=== PATIENT | female | born 1950 | race Caucasian/White ===

== ENCOUNTER 2017-02-24 12:32 | Inpatient (IN) | payer MEDICARE ==
[~2017-02-24] VITALS: Ht 172.7 cm; Wt 54.5 kg
[~2017-02-24 12:32] MED LIST: AMLO-39 PO; CAPE500T15 PO; CLOP75TA28 PO; ENAL2.5T PO; LIP40 PO; METF500T4 PO; ONDA8TAB7 PO; OXYC15TA79 PO; SLEEP MED PO; TEMO140C5 PO
[2017-02-24 12:38] VITALS: BP 102/68; PULSE 107; RESP 12; O2SAT 98
--- NOTE | 2017-02-24 12:59 | ED.REPORT ---
HPI-General Illness Date of Service Feb 24, 2017 ED Provider: Jacque Antonio Patient is a 66 year old female with a hx of neuroendocrine cancer, diverticulitis, and CVA on Plavix who presents to the ED complaining of rectal bleeding onset this morning. She describes it as "bright red dripping but not pouring." Associated symptoms include weakness, diaphoresis, vomiting (x4-5), diarrhea, and abdominal cramping onset yesterday. She denies hematemesis, dizziness, or any other symptoms. She is not currently on her chemo medications. Pt had a liver biopsy last week. Nursing Notes Stated Complaint: FLU SYMPTOMS,VOMITING,RECTAL BLEEDING,WEAK Chief Complaint: Female Abdominal Pain Nursing Notes Reviewed: Yes Allergies: Coded Allergies: clavulanic acid (Verified Adverse Reaction, Mild, Diarrhea, nausea, 08/13/15 ) paroxetine (Verified Adverse Reaction, Mild, Sweating, 08/13/15) Scheduled Amlodipine (Norvasc) 5 Mg Tablet 10 MG PO DAILY Atorvastatin (Lipitor) 40 Mg Tablet 40 MG PO DAILY Capecitabine (Capecitabine) 500 Mg Tablet 1,000 MG PO BID X14 DAYS per 28 day cycle Clopidogrel (Clopidogrel) 75 Mg Tablet 75 MG PO DAILY Enalapril Maleate (Enalapril Maleate) 2.5 Mg Tablet 2.5 MG PO DAILY Metformin (Metformin) 500 Mg Tablet 500 MG PO DAILY Temozolomide (Temozolomide) 140 Mg Capsule 140 MG PO BID takes DAYS 10-14 Scheduled PRN ([OTC Sleep med]) Unknown Dose PO HS PRN PRN Insomnia Ondansetron ODT (Zofran ODT) 8 Mg Tab.rapdis 8 MG PO BID PRN PRN For Nausea oxyCODONE (oxyCODONE) 15 Mg Tablet 15-30 MG PO Q8HRS PRN PRN For Pain General Time Seen by MD: 12:59 Chief Complaint Other (Rectal bleeding ) Hx Obtained From: Patient Arrived By: Walk-in Sudden in Onset?: Yes Onset Occurred: 5 - 8 hours ago Symptom Duration: Since onset Location: : Abdomen Quality: Cramping Severity: Current: Moderate Severity: Maximum: Moderate Recent Healthcare: Recent doctor visit Similar Sx Previous: No Past Medical History Past Medical History 1. Hypertension. 2. Diverticulitis. 3. History of alcohol abuse (according to the sister). 4. Neuroendocrine Cancer 5. CVA 6. DM 7. Anxiety 8. hyperlipidemia Past Surgical History Ankle surgery Left leg stent due to stenosis Liver biopsy Reports: Tonsillectomy Smoking History Current Every Day Smoker Social History Lives with friends Drug Use: Denies drug use Ambulatory Status Independent Review of Systems +rectal bleeding Full Review of Systems Constitutional: Reports: Weakness - generalized GI: Reports: Abdominal pain, Diarrhea, Vomiting, Denies: Hematemesis Skin: Reports Diaphoresis Neurologic: Denies: Dizziness Complete sys rev & neg: except as marked. Physical Exam Vital Signs Vital Signs Date Time Temp Pulse Resp B/P Pulse Ox O2 Delivery O2 Flow Rate FiO2 02/24/17 14:08 73 16 108/58 99 Room Air 02/24/17 12:38 36.7 107 12 102/68 98 Room Air Initial VS: Reviewed, Vital signs abnormal Head / Eyes: Atraumatic, Normocephalic Neck: Full range of motion Skin: Warm, Dry Neurologic: Alert, Oriented, Nonfocal General/Constitutional: Awake, Alert, No acute distress Respiratory / Chest: Atraumatic, Breath sounds NL, Breath sounds = bilat, No respiratory distress, No wheezing Cardiovascular: Heart rate NL, Regular rhythm Heart Sounds / Murmur: Positive: Diastolic murmur present. (III/) Abdomen: Atraumatic, Soft, Non-tender Hyperactive bowel tones Lower Extremity / Pelvis / MS: No edema Interpretation & Diagnostics Lab Results Interpretation Result Diagram: 02/24/17 1340 02/24/17 1445 Test 02/24/17 13:40 02/24/17 14:45 White Blood Count 21.2th/mm3 (3.8-10.1) Red Blood Count 4.06mil/mm3 (3.90-5.20) Hemoglobin 14.1g/dL (12.0-15.6) Hematocrit 40.6% (35.0-46.0) Mean Corpuscular Volume 100.0fL (81-100) Mean Corpuscular Hemoglobin 34.7pg (27.0-35.0) Mean Corpuscular Hemoglobin Concent 34.7% (32.0-37.0) Red Cell Distribution Width 14.9% (12.3-15.4) Platelet Count 294bil/L (150-400) Neutrophils (%) (Auto) 86.4% (40-74) Lymphocytes (%) (Auto) 5.5% (14-46) Monocytes (%) (Auto) 5.1% (4-12) Eosinophils (%) (Auto) 2.3% (0-5) Basophils (%) (Auto) 0.4% (0-3) Prothrombin Time 10.7sec (8.1-12.5) Prothromb Time International Ratio 1.00ratio Sodium Level 135mEq/L (134-144) Potassium Level 4.1mEq/L (3.5-5.2) Chloride Level 97mEq/L (97-108) Carbon Dioxide Level 20mmol/L (18-29) Blood Urea Nitrogen 19mg/dL (8-27) Creatinine 1.02mg/dL (0.57-1.00) Estimat Glomerular Filtration Rate 78mL/min (>59) Glucose Level 126mg/dL (60-99) Lactic Acid Level 1.4mmol/L (0.4-2.0) Calcium Level 8.7mg/dL (8.5-10.1) Total Bilirubin 0.5mg/dL (0.0-1.2) Aspartate Amino Transf (AST/SGOT) 9U/L (0-50) Alanine Aminotransferase (ALT/SGPT) 7U/L (0-32) Alkaline Phosphatase 94U/L (25-165) Troponin T < 0.010ug/L (0.0-0.011) Total Protein 6.3g/dL (6.4-8.4) Albumin 3.4g/dL (3.4-5.0) Lab Results Interpretation: Abd CT is pending at time of admit to floor (drinking PO contrast) - Dr Fam will follow up on this today after admitted ECG Interpretation ECG Interpretation: Sinus arrhythmia rate 97 left atrial enlargement LAD, left anterior fascicular block LVH Time: 13:19 Interpreted by: ED physician Re-Eval/Medical Decision Med Decision/Clinical Course Presents with weakness. WBC significantly elevated with left shift. No source for infection identified. Did note red blood per rectum (wihtout BM) today. Mild abd cramping. No fever. No UTI or pulm sx. No sx consistent with meningitis. No indwelling lines. No acute anemia. will add lactic acid and blood cultures and start pip/tazo with presumed abd source for infection. had CT 8/29 (cancer survelience ) with no infectious abnormality noted then. Belly exam is relatively benign. Await UA results. 1530 feeling a bit better after a liter of fluid. No additional bright red blood per rectum since she's been in the emergency department. CT scan of the abdomen and pelvis which is scheduled for tomorrow is moved up today to see if there is any infectious etiology to explain her leukocytosis. She remains afebrile. She is able to eat and drink at this point. Given the multiple uncertain factors including the new bright red blood per rectum, the unexplained leukocytosis, known metastatic neuroendocrine cancer currently on chemotherapy will recommend at least an observational stay to make sure that her leukocytosis is improving is no additional bleeding. Time of Eval: 14:53 Re-Evaluation/Progress Note: Rechecked pt who is feeling much better after 500 CC bolus. Discussed plan for admission. Pt informs that she is scheduled for CT ABD/PELVIS tomorrow. Discussed plan for CT today.. Patient understands and agrees with plan. All questions addressed at this time. Consultation #1: Consulted With: Ash Conveyor Operator Call Returned at: 15:34 Note: Discussed care with Dr. Drummond. Given her unexplained weakness, that single episode of bright red blood per rectum the unexplained leukocytosis in light of known metastatic cancer and currently on chemotherapy he agrees with recommendation to admit her at least overnight to make sure there is no continued rectal bleeding and to make sure that the leukocytosis is improving. She does have a follow-up appointment already scheduled with him next Wednesday. Was to have a CT scan of the abdomen and pelvis done tomorrow and that is done today. Consultation #2: Consulted With: Hospitalist Call Returned at: 15:44 It Support Manager: Will see patient Note: in light of BRBPR, unexplained leukocytosis, and chemo agrees with plan to admit. Counseled Regarding: Diagnosis, Lab results, Need for admission Discharge & Departure Primary Impression: Weakness Additional Impressions: Leukocytosis Leukocytosis type: unspecified Qualified Code: D72.829 - Elevated white blood cell count, unspecified Neuroendocrine carcinoma Rectal bleeding Disposition: ADMITTED TO HOSPITAL Discharge Condition All VS Reviewed: Yes Condition: Stable Referrals: Case,Mariana HOUSER (PCP) Scribe Attestation Portions of this note were transcribed by Toribio Arrington. I, Dr. Antonio personally performed the history, physical exam and medical decision-making; I reviewed and confirmed the accuracy of the information in the transcribed note. Signed by: Calos Lindo, 02/24/17 copies to: Mariana Mar; Rj Drummond Shawna L MD Feb 24, 2017 12:59 TORIBIO ARRINGTON Feb 24, 2017 13:07
[2017-02-24] MEDS ORDERED: 0.9% Sodium Chloride 1,000 ML IV ONE ×2 (13:07→15:40)
[2017-02-24 13:54] LABS: BASOPHILS % (AUTO) 0.4 % (0-3); EOSINOPHILS % (AUTO) 2.3 % (0-5); MONOCYTES % (AUTO) 5.1 % (4-12); Mean Corpuscular Hemoglobin 34.7 pg (27.0-35.0); NEUTROPHILS % (AUTO) 86.4 % (40-74); Platelet Count 294 bil/L (150-400)
[2017-02-24 14:08] VITALS: BP 108/58; PULSE 73; RESP 16; O2SAT 99
[2017-02-24] MEDS ORDERED: Piperacillin-Tazo 3.375 Gm Inj 3.375 GM in Dextrose 5% Minibag Plus 50 ML IV ONE (14:20)
[2017-02-24] MEDS ORDERED: Iohexol 300 mg/mL 30 mL Inj PO ONE (15:00)
[2017-02-24 15:22] LABS: TROPONIN T < 0.010 ug/L (0.0-0.011)
[2017-02-24 15:56] LABS: APPEARANCE,URINE HAZY (CLEAR,HAZY); COLOR,URINE YELLOW (YELLOW); OCCULT BLOOD,URINE LARGE (NEGATIVE)
[2017-02-24] MEDS ORDERED: AMLO10TA3 PO (16:03)
[2017-02-24] MEDS ORDERED: DOXY25TA44 PO (16:08)
[2017-02-24 16:27] VITALS: BP 125/53; PULSE 72; RESP 14; O2SAT 98
[2017-02-24] MEDS ORDERED: Ondansetron 2 mg/mL 2 mL Inj IVPUSH PRN (16:35)
[2017-02-24] MEDS ORDERED: Alum-Mag Hydrox-Simeth 30 mL Suspension PO PRN (16:35)
[2017-02-24] MEDS ORDERED: Polyethylene Glycol (PEG) 17 Gm Powder PO PRN (16:35)
[2017-02-24 16:50] VITALS: BP 125/53; PULSE 72; RESP 14; O2SAT 98
--- NOTE | 2017-02-24 17:00 | PCM.HPMED ---
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 He also noticed some blood independent of a bowel movement this morning per rectum does have a history of hemorrhoids. She denies any coffee ground emesis or hematemesis. He denies any chest pain or lightheadedness. Patient is on third line chemotherapy with a regimen of capecitabine and temozolomide with concurrent octreotide which started in September 2014. She did have some low-grade nausea with this regimen but otherwise has tolerated it well. Patient was found to have a stable hematocrit but was found to have elevated white count of 21,000 in the ER with 86% polys. Review of Systems: All other review of systems are reviewed and are negative except for as in history of present illness Allergies Coded Allergies: clavulanic acid (Verified Adverse Reaction, Mild, Diarrhea, nausea, 08/13/15 ) paroxetine (Verified Adverse Reaction, Mild, Sweating, 08/13/15) Home Medications Scheduled Amlodipine (Norvasc) 5 Mg Tablet 10 MG PO DAILY Atorvastatin (Lipitor) 40 Mg Tablet 40 MG PO DAILY Capecitabine (Capecitabine) 500 Mg Tablet 1,000 MG PO BID X14 DAYS per 28 day cycle Clopidogrel (Clopidogrel) 75 Mg Tablet 75 MG PO DAILY Enalapril Maleate (Enalapril Maleate) 2.5 Mg Tablet 2.5 MG PO DAILY Metformin (Metformin) 500 Mg Tablet 500 MG PO DAILY Temozolomide (Temozolomide) 140 Mg Capsule 140 MG PO BID takes DAYS 10-14 Scheduled PRN ([OTC Sleep med]) Unknown Dose PO HS PRN PRN Insomnia Ondansetron ODT (Zofran ODT) 8 Mg Tab.rapdis 8 MG PO BID PRN PRN For Nausea oxyCODONE (oxyCODONE) 15 Mg Tablet 15-30 MG PO Q8HRS PRN PRN For Pain PMH Past Medical History 1. Hypertension. 2. Diverticulitis. 3. History of alcohol abuse (according to the sister). 4. Neuroendocrine Cancer 5. CVA 6. DM 7. Anxiety 8. hyperlipidemia Past Surgical History Ankle surgery Left leg stent due to stenosis Liver biopsy Reports: Tonsillectomy Family History Denies family medical history of GI tumors Social History Hx Alcohol Use: Yes (Rarely) Hx Substance Use: No Hx Tobacco Use: Yes Smoking Status: Current Every Day Smoker Living Arrangement: Alone Exam Vital Signs Vital Sign - Last Date Time Temp Pulse Resp B/P Pulse Ox O2 Delivery O2 Flow Rate FiO2 02/24/17 16:50 36.7 72 14 125/53 98 Room Air Exam Constitutional: Middle-aged female in no acute distress Head: Normocephalic atraumatic Eyes: PERRLA DC EOMI Mouth: No lesions Neck: No adenopathy Chest: Clear to auscultation Cor: Regular rate and rhythm S1-S2 Abdomen: Soft mild tenderness in the bilateral lower quadrants no rebound no guarding bowel sounds are present Extremities: No pedal edema Skin: No rashes Psych: Mood and affect are appropriate Neuro: Alert and oriented 3, motor strength is intact bilaterally Lab and Diagnostics Labs Laboratory Tests 72 Hours Test 02/24/17 13:40 02/24/17 14:45 02/24/17 15:40 White Blood Count 21.2th/mm3 (3.8-10.1) Red Blood Count 4.06mil/mm3 (3.90-5.20) Hemoglobin 14.1g/dL (12.0-15.6) Hematocrit 40.6% (35.0-46.0) Mean Corpuscular Volume 100.0fL (81-100) Mean Corpuscular Hemoglobin 34.7pg (27.0-35.0) Mean Corpuscular Hemoglobin Concent 34.7% (32.0-37.0) Red Cell Distribution Width 14.9% (12.3-15.4) Platelet Count 294bil/L (150-400) Neutrophils (%) (Auto) 86.4% (40-74) Lymphocytes (%) (Auto) 5.5% (14-46) Monocytes (%) (Auto) 5.1% (4-12) Eosinophils (%) (Auto) 2.3% (0-5) Basophils (%) (Auto) 0.4% (0-3) Prothrombin Time 10.7sec (8.1-12.5) Prothromb Time International Ratio 1.00ratio Sodium Level 135mEq/L (134-144) Potassium Level 4.1mEq/L (3.5-5.2) Chloride Level 97mEq/L (97-108) Carbon Dioxide Level 20mmol/L (18-29) Blood Urea Nitrogen 19mg/dL (8-27) Creatinine 1.02mg/dL (0.57-1.00) Estimat Glomerular Filtration Rate 78mL/min (>59) Glucose Level 126mg/dL (60-99) Lactic Acid Level 1.4mmol/L (0.4-2.0) Calcium Level 8.7mg/dL (8.5-10.1) Total Bilirubin 0.5mg/dL (0.0-1.2) Aspartate Amino Transf (AST/SGOT) 9U/L (0-50) Alanine Aminotransferase (ALT/SGPT) 7U/L (0-32) Alkaline Phosphatase 94U/L (25-165) Troponin T < 0.010ug/L (0.0-0.011) Total Protein 6.3g/dL (6.4-8.4) Albumin 3.4g/dL (3.4-5.0) Urine Color Yellow (YELLOW) Urine Appearance Hazy (CLEAR,HAZY) Urine pH 5.0 (5.0-8.0) Urine Specific Helm 1.030 (1.003-1.035) Urine Protein 100mg/dL (NEG,TRACE) Urine Glucose (UA) 100mg/dL (NEGATIVE) Urine Ketones Negativemg/dL (NEGATIVE) Urine Occult Blood Large (NEGATIVE) Urine Nitrite Negative (NEGATIVE) Urine Bilirubin Negative (NEGATIVE) Urine Urobilinogen 1.0mg/dL (NORMAL) Urine Leukocyte Esterase Negative (NEGATIVE) Urine RBC 3-10/hpf (0-2) Urine WBC 0-5/hpf (0-5) Urine Epithelial Cells Few/hpf (NONE-MOD) Urine Crystals None seen (NONE SEEN) Urine Bacteria Moderate/hpf (NONE-FEW) Urine Hyaline Casts None/lpf (NONE) Urine Granular Casts None seen (NONE SEEN) Urine Waxy Casts None seen (NONE SEEN) Urine Red Blood Cell Casts None seen (NONE SEEN) Urine White Blood Cell Casts None seen (NONE SEEN) Urine Mucus Present (None Seen) Urine Trichomonas None seen (NONE SEEN) Urine Yeast None (NONE SEEN) Urinalysis Comment None Urine Culture Reflexed Indicated Result Diagram: 02/24/17 1340 02/24/17 1445 X-Rays, CTs and MRIs PROCEDURE: US-GUIDED LIVER BIOPSY ([id number]) Ultrasound-guided liver biopsy with sedation analgesia for 15 minutes. INDICATIONS: METASTATIC NEOPLASM ENDOCRINE PANCREAS TECHNIQUE: The indications, alternatives, benefits, risks, and complications of the procedure were explained to the patient. Written informed consent was obtained and placed in the chart. Continuous EKG and hemodynamic monitoring was started by trained personnel. Real-time sonography was utilized to choose the site for percutaneous hepatic biopsy. The skin was prepped and draped in the usual sterile fashion. 1% lidocaine was infiltrated down to the hepatic capsule. A coaxial needle was then advanced into the liver under direct sonographic visualization. A biopsy apparatus was then utilized, and core biopsies were obtained. The needle was then withdrawn; a bandage and overlying weight were applied to the biopsy site. The attending physician was present, and personally performed the procedure. COMPARISON: [facility], US, ABDOMEN LTD, 02/01/2017, 9:05. [facility], CT, CT ABD W CON, 01/20/2017, 10:07. [facility] , US GUIDED BX LIVER(PNL), 09/29/2013, 11:47. FINDINGS: Biopsy site(s): Anterior and posterior inferior right hepatic lobe lesions were biopsied. Needle: Steel Steed Studiono biopsy needle set. Number of passes: 7 total passes. Medications: 1% lidocaine for local anaesthesia. IV Versed and Fentanyl for conscious sedation for 15 minutes (see nursing record). Complications: None. IMPRESSION: Successful ultrasound-guided liver biopsy, with pathology results pending. Dictated by: Jeffery FLORES Interpreted: Amber Pritchard MD on 02/09/2017 at 10: 57 Approved by: Amber Pritchard M.D. on 02/09/2017 at 17:00 Assessment & Plan # Weakness, acute, present on admission -Check serial hematocrit -Does have elevated white count which may be contributing to this -Give IV fluids hydration # Leukocytosis, acute, present on admission -She has started on IV Zosyn the emergency room will go ahead and continue that for now -Check WBCs in the a.m. 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 Drummond who was notified by ER physician regarding this patient -Also agreed with taking a look at repeat CT of abdomen and pelvis # Bright red blood per rectum, acute, present on admission -Monitor serial crits -Monitor stool # Hypertension, chronic, present on admission -Continue current medication regimen and monitor blood pressures #Tobacco dependence, present on admission -Place on nicotine patch #DVT prophylaxis -We will use SCDs and not put on subcutaneous anticoagulation given bright red blood per rectum #CODE STATUS -Full code Pain Evaluation: Adequate Pain Control VTE Prophylaxis: SCDs Resuscitation Status: CPR: Attempt Resuscitation Time spent 60 minutes Sierra Fam MD Feb 24, 2017 16:59
--- NOTE | 2017-02-24 17:10 | DRSVH ---
PROCEDURE: CT ABDOMEN AND PELVIS WITH CONTRAST ([id number]) INDICATIONS: leukocytosis TECHNIQUE: After the administration of oral and intravenous contrast, 5 mm thick sections acquired from the diap hragms to the symphysis. 5 mm thick coronal and sagittal reformats were performed. For radiation do se reduction, the following was used: automated exposure control, adjustment of mA and/or kV accordi ng to patient size. COMPARISON: [facility], CT, CT ABD PELVIS W CON, 02/09/2017, 13:15. FINDINGS: Image quality: Excellent. ABDOMEN: Lung bases: Lung bases are clear. Heart size is normal. Solid organs: Liver and spleen are normal in size. Multiple heterogeneously enhancing and partially calcified hepatic lesions compatible with known neuroendocrine tumor metastatic disease stable compar ed to prior CT scan obtained 02/09/2017. Gallbladder is within normal limits. Biliary system is non-d ilated. Pancreas enhances normally. Partially calcified mass in the head of the pancreas is stable c ompared to the prior examination. Pancreatic body and tail atrophy is stable compared to the prior ex amination. No adrenal nodules. Kidneys are normal in size and enhancement, without hydronephrosis. Peritoneum and bowel: Stomach and the small bowel are normal in caliber and wall thickness. Circumfe rential wall thickening involving the splenic flexure of the colon, the left colon and the sigmoid co kimberly compatible with nonspecific colitis. Numerous diverticuli again noted in the sigmoid colon withou t evidence of diverticulitis. Small amount of free fluid noted in the pelvis. No free fluid or air. Nodes and vessels: No retroperitoneal or mesenteric adenopathy. Aorta and inferior vena cava are no rmal in caliber. Scattered atherosclerotic calcifications involving the abdominal and pelvic vasculat ure. Miscellaneous: No ventral hernias. PELVIS: Genitourinary: Bladder wall thickness is normal. Miscellaneous: No inguinal hernias or adenopathy. Bones: No suspicious bony lesions. No vertebral body compression fractures. Spine degenerative disc disease and facet arthropathy. IMPRESSION: 1. Circumferential wall thickening with adjacent inflammation involving the left colon and sigmoid co kimberly compatible with nonspecific colitis. Differential diagnosis includes complex cyst/inflammatory pr ocesses, neoplastic process and ischemic etiologies. 2. Multiple partially calcified hepatic metastatic lesions stable compared to prior examination obtai kieran a/11 sagittal and 17. 3. Partial calcified mass in the head of the pancreas stable compared to prior examination. 3. Small amount of low-density free fluid in the pelvis possibly related to colitis. Dictated by: Magy Frazier MD, PhD on 02/24/2017 at 17:02 Approved by: Magy Frazier MD, PhD on 02/24/2017 at 17:09
[2017-02-24 17:12] VITALS: BP 134/68; PULSE 66; RESP 20; O2SAT 96
--- NOTE | 2017-02-24 17:40 | DRSVH ---
PROCEDURE: X-RAY CHEST, TWO VIEWS ([id number]) INDICATIONS: leukocytosis TECHNIQUE: 2 views of the chest were acquired. COMPARISON: [facility], , CHEST 1VW (PORTABLE), 06/27/2014, 18:15. FINDINGS: Surgical changes and devices: None. Lungs and pleura: No pleural effusions or pneumothorax. Lungs are clear. Mediastinum: Mediastinal contours are normal. Heart size is normal. Bones and chest wall: No suspicious bony abnormalities. Soft tissues appear unremarkable. IMPRESSION: No acute cardiopulmonary disease process. Dictated by: Magy Frazier MD, PhD on 02/24/2017 at 17:38 Approved by: Magy Frazier MD, PhD on 02/24/2017 at 17:38
--- NOTE | 2017-02-24 18:00 | NUR ---
Admit Pt arrived via gurney from CT/Xray at 1710 - from ED; walked to bed. A&Ox3, TAYLOR, VSS, Pain tolerable, IV dc'd intact after having had contrast pushed through a 24g IV - IV blown, Per pt and ED RN - hard IV start - call to IV therapy for IV start, Pt oriented to room - call light in reach. Admit RN completed admission documentation. Family and friend at bedside. Care continues.
[2017-02-24] MEDS: 0.9% Sodium Chloride 1,000 ML IV SCH (18:04)
[2017-02-24] MEDS ORDERED: Piperacillin-Tazo 3.375 Gm Inj 3.375 GM in Dextrose 5% Minibag Plus 50 ML IV SCH (19:30)
[2017-02-24 20:10] VITALS: BP 157/75; PULSE 68; RESP 16; O2SAT 95
[2017-02-24] MEDS: Piperacillin-Tazo 3.375 Gm Inj 3.375 GM in Dextrose 5% Minibag Plus 50 ML IV SCH (23:56)
[2017-02-25] VITALS (8 sets, daily range): BP systolic 103–170; BP diastolic 59–93; PULSE 63–112; RESP 16–20; O2SAT 94–97
--- NOTE | 2017-02-25 04:02 | NUR ---
Pain Patient stated she takes Roxycodone 15mg TID at home for abdominal pain. Physician notified and medication was added to patient's EMAR. Patient A&OX3. Patient continues to have some blood without stool from rectum. Patient up independent to bathroom. Steady gait. Care continues.
[2017-02-25 05:33] LABS: BASOPHILS % (AUTO) 0.6 % (0-3); EOSINOPHILS % (AUTO) 8.3 % (0-5); MONOCYTES % (AUTO) 5.7 % (4-12); Mean Corpuscular Hemoglobin 33.9 pg (27.0-35.0); Mean Corpuscular Volume 101.1 fL (81-100); NEUTROPHILS % (AUTO) 76.9 % (40-74); Platelet Count 220 bil/L (150-400)
[2017-02-25] MEDS ORDERED: DOXYLAMINE SUCCINATE 50 MG PO PRN (07:25)
[2017-02-25] MEDS ORDERED: OXYCODONE 15 MG PO PRN (07:25)
[2017-02-25] MEDS: 0.9% Sodium Chloride 1,000 ML IV SCH ×3 (07:38→18:42)
[2017-02-25] MEDS: Piperacillin-Tazo 3.375 Gm Inj 3.375 GM in Dextrose 5% Minibag Plus 50 ML IV SCH ×3 (08:58→23:35)
--- NOTE | 2017-02-25 11:52 | NUR ---
Social Work: Initial Assessment/Readiness for D/C D: EMR reviewed. Please see Initial Assessment linked to this note for more information. Pt is a 66 year old female admitted [place] for weakness, leukocytosis, lower GI bleed per H&P. Pt's insurance is Medicare and [employer]. PCP is CORRINA Alvarez. Pt's Oncologist is Dr. Drummond. Pt discussed in multidisciplinary rounds, pt is likely to d/c home. No SW needs identified in rounds, no concerns related to pt's capacity for self-care raised. SW met with pt at bedside to conduct initial assessment. Pt was alert and oriented x3. SW explained role and wrote phone number on white board. SW provided [facility] Discharge Planning Checklist and encouraged pt to contact SW for any discharge planning questions. Pt's designated contact center professional for d/c planning is sister Mayra Maciel, Pt lives at home with her roommates in [place]. Pt is independent with all ADLs at baseline. Pt uses no DME at baseline. Pt drives. Pt has no HH or SNF history. Pt has no LTC or VA benefits. Pt has DPOA complete, pt stated her sister is DPOA but also it may be her daughter. Pt is likely to d/c home with family/friends to transport via POV. SW will continue to follow. A: Pt who is independent at baseline and has the capacity for self-care. P: Pt anticipated to discharge home with family/friends to transport via POV. No SW needs identified, no MD orders received at this time. SW will continue to follow for needs until time of discharge. CHIQUITA Rivera Addendum: 02/25/17 at 1156 by SURY BRAVO Amended: Links added.
--- NOTE | 2017-02-25 14:28 | PCM.PNMED ---
Subjective Date of Service Feb 25, 2017 Subjective Patient notes she is feeling a bit better than when she came in yesterday. She has had no nausea or vomiting or loose stools since being here. Exam Vital Signs Vital Sign - Last Date Time Temp Pulse Resp B/P Pulse Ox O2 Delivery O2 Flow Rate FiO2 02/25/17 13:37 65 114/59 02/25/17 13:08 36.9 16 94 Room Air Intake and Output 02/24/17 02/24/17 02/25/17 Cumulative From/Thru 15:00 23:00 07:00 02/24/17 12:38 - 02/25/17 06:45 Intake Total 999 ml 320 ml 1549 ml 2868 ml Output Total 300 ml 1000 ml 1300 ml Balance 999 ml 20 ml 549 ml 1568 ml Intake Oral 320 ml 660 ml 980 ml IV Total 999 ml 889 ml 1888 ml Output Urine Total 300 ml 1000 ml 1300 ml # Voids 1 1 # Bowel Movements 0 0 Exam Constitutional: Middle-aged female in no acute distress Head: Normocephalic atraumatic Chest: Clear to auscultation Cor: Regular rate and rhythm S1-S2 without murmur Abdomen: Soft nontender bowel sounds present Extremities: No pedal edema Neuro: Alert and oriented 3, motor strength is intact bilaterally Lab and Diagnostics Laboratory Tests 72 Hours Test 02/24/17 13:40 02/24/17 14:45 02/24/17 15:40 02/24/17 16:31 White Blood Count 21.2th/mm3 (3.8-10.1) Red Blood Count 4.06mil/mm3 (3.90-5.20) Hemoglobin 14.1g/dL (12.0-15.6) Hematocrit 40.6% (35.0-46.0) Mean Corpuscular Volume 100.0fL (81-100) Mean Corpuscular Hemoglobin 34.7pg (27.0-35.0) Mean Corpuscular Hemoglobin Concent 34.7% (32.0-37.0) Red Cell Distribution Width 14.9% (12.3-15.4) Platelet Count 294bil/L (150-400) Neutrophils (%) (Auto) 86.4% (40-74) Lymphocytes (%) (Auto) 5.5% (14-46) Monocytes (%) (Auto) 5.1% (4-12) Eosinophils (%) (Auto) 2.3% (0-5) Basophils (%) (Auto) 0.4% (0-3) Prothrombin Time 10.7sec (8.1-12.5) Prothromb Time International Ratio 1.00ratio Sodium Level 135mEq/L (134-144) Potassium Level 4.1mEq/L (3.5-5.2) Chloride Level 97mEq/L (97-108) Carbon Dioxide Level 20mmol/L (18-29) Blood Urea Nitrogen 19mg/dL (8-27) Creatinine 1.02mg/dL (0.57-1.00) Estimat Glomerular Filtration Rate 78mL/min (>59) Glucose Level 126mg/dL (60-99) Lactic Acid Level 1.4mmol/L (0.4-2.0) Calcium Level 8.7mg/dL (8.5-10.1) Total Bilirubin 0.5mg/dL (0.0-1.2) Aspartate Amino Transf (AST/SGOT) 9U/L (0-50) Alanine Aminotransferase (ALT/SGPT) 7U/L (0-32) Alkaline Phosphatase 94U/L (25-165) Troponin T < 0.010ug/L (0.0-0.011) Total Protein 6.3g/dL (6.4-8.4) Albumin 3.4g/dL (3.4-5.0) Urine Color Yellow (YELLOW) Urine Appearance Hazy (CLEAR,HAZY) Urine pH 5.0 (5.0-8.0) Urine Specific [place] 1.030 (1.003-1.035) Urine Protein 100mg/dL (NEG,TRACE) Urine Glucose (UA) 100mg/dL (NEGATIVE) Urine Ketones Negativemg/dL (NEGATIVE) Urine Occult Blood Large (NEGATIVE) Urine Nitrite Negative (NEGATIVE) Urine Bilirubin Negative (NEGATIVE) Urine Urobilinogen 1.0mg/dL (NORMAL) Urine Leukocyte Esterase Negative (NEGATIVE) Urine RBC 3-10/hpf (0-2) Urine WBC 0-5/hpf (0-5) Urine Epithelial Cells Few/hpf (NONE-MOD) Urine Crystals None seen (NONE SEEN) Urine Bacteria Moderate/hpf (NONE-FEW) Urine Hyaline Casts None/lpf (NONE) Urine Granular Casts None seen (NONE SEEN) Urine Waxy Casts None seen (NONE SEEN) Urine Red Blood Cell Casts None seen (NONE SEEN) Urine White Blood Cell Casts None seen (NONE SEEN) Urine Mucus Present (None Seen) Urine Trichomonas None seen (NONE SEEN) Urine Yeast None (NONE SEEN) Urinalysis Comment None Urine Culture Reflexed Indicated Magnesium Level 2.0mg/dL (1.6-2.6) Procalcitonin 0.30ng/mL (0.00-0.08) Test 02/25/17 05:00 White Blood Count 16.6th/mm3 (3.8-10.1) Red Blood Count 3.60mil/mm3 (3.90-5.20) Hemoglobin 12.2g/dL (12.0-15.6) Hematocrit 36.4% (35.0-46.0) Mean Corpuscular Volume 101.1fL (81-100) Mean Corpuscular Hemoglobin 33.9pg (27.0-35.0) Mean Corpuscular Hemoglobin Concent 33.5% (32.0-37.0) Red Cell Distribution Width 14.7% (12.3-15.4) Platelet Count 220bil/L (150-400) Neutrophils (%) (Auto) 76.9% (40-74) Lymphocytes (%) (Auto) 8.4% (14-46) Monocytes (%) (Auto) 5.7% (4-12) Eosinophils (%) (Auto) 8.3% (0-5) Basophils (%) (Auto) 0.6% (0-3) Sodium Level 140mEq/L (134-144) Potassium Level 4.2mEq/L (3.5-5.2) Chloride Level 107mEq/L (97-108) Carbon Dioxide Level 21mmol/L (18-29) Blood Urea Nitrogen 9mg/dL (8-27) Creatinine 0.61mg/dL (0.57-1.00) Estimat Glomerular Filtration Rate 141mL/min (>59) Glucose Level 131mg/dL (60-99) Calcium Level 8.2mg/dL (8.5-10.1) Total Bilirubin 0.5mg/dL (0.0-1.2) Aspartate Amino Transf (AST/SGOT) 9U/L (0-50) Alanine Aminotransferase (ALT/SGPT) 5U/L (0-32) Alkaline Phosphatase 83U/L (25-165) Total Protein 5.2g/dL (6.4-8.4) Albumin 3.2g/dL (3.4-5.0) Procalcitonin 0.16ng/mL (0.00-0.08) Result Diagram: 02/25/17 0500 02/25/17 0500 X-Rays, CTs and MRIs PROCEDURE: CT ABDOMEN AND PELVIS WITH CONTRAST ([id number]) INDICATIONS: leukocytosis TECHNIQUE: After the administration of oral and intravenous contrast, 5 mm thick sections acquired from the diaphragms to the symphysis. 5 mm thick coronal and sagittal reformats were performed. For radiation dose reduction, the following was used : automated exposure control, adjustment of mA and/or kV according to patient size. COMPARISON: [facility], CT, CT ABD PELVIS W CON, 02/09/2017, 13:15. FINDINGS: Image quality: Excellent. ABDOMEN: Lung bases: Lung bases are clear. Heart size is normal. Solid organs: Liver and spleen are normal in size. Multiple heterogeneously enhancing and partially calcified hepatic lesions compatible with known neuroendocrine tumor metastatic disease stable compared to prior CT scan obtained 02/09/2017. Gallbladder is within normal limits. Biliary system is non- dilated. Pancreas enhances normally. Partially calcified mass in the head of the pancreas is stable compared to the prior examination. Pancreatic body and tail atrophy is stable compared to the prior examination. No adrenal nodules. Kidneys are normal in size and enhancement, without hydronephrosis. Peritoneum and bowel: Stomach and the small bowel are normal in caliber and wall thickness. Circumferential wall thickening involving the splenic flexure of the colon, the left colon and the sigmoid colon compatible with nonspecific colitis. Numerous diverticuli again noted in the sigmoid colon without evidence of diverticulitis. Small amount of free fluid noted in the pelvis. No free fluid or air. Nodes and vessels: No retroperitoneal or mesenteric adenopathy. Aorta and inferior vena cava are normal in caliber. Scattered atherosclerotic calcifications involving the abdominal and pelvic vasculature. Miscellaneous: No ventral hernias. PELVIS: Genitourinary: Bladder wall thickness is normal. Miscellaneous: No inguinal hernias or adenopathy. Bones: No suspicious bony lesions. No vertebral body compression fractures. Spine degenerative disc disease and facet arthropathy. IMPRESSION: 1. Circumferential wall thickening with adjacent inflammation involving the left colon and sigmoid colon compatible with nonspecific colitis. Differential diagnosis includes complex cyst/inflammatory processes, neoplastic process and ischemic etiologies. 2. Multiple partially calcified hepatic metastatic lesions stable compared to prior examination obtained sagittal and 17. 3. Partial calcified mass in the head of the pancreas stable compared to prior examination. 3. Small amount of low-density free fluid in the pelvis possibly related to colitis. Dictated by: Magy rFazier MD, PhD on 02/24/2017 at 17:02 Approved by: Magy Frazier MD, PhD on 02/24/2017 at 17:09 PROCEDURE: X-RAY CHEST, TWO VIEWS ([id number]) INDICATIONS: leukocytosis TECHNIQUE: 2 views of the chest were acquired. COMPARISON: [facility], , CHEST 1VW (PORTABLE), 06/27/2014, 18:15. FINDINGS: Surgical changes and devices: None. Lungs and pleura: No pleural effusions or pneumothorax. Lungs are clear. Mediastinum: Mediastinal contours are normal. Heart size is normal. Bones and chest wall: No suspicious bony abnormalities. Soft tissues appear unremarkable. IMPRESSION: No acute cardiopulmonary disease process. Dictated by: Magy Frazier MD, PhD on 02/24/2017 at 17:38 Approved by: Magy Frazier MD, PhD on 02/24/2017 at 17:38 PROCEDURE: US-GUIDED LIVER BIOPSY ([id number]) Ultrasound-guided liver biopsy with sedation analgesia for 15 minutes. INDICATIONS: METASTATIC NEOPLASM ENDOCRINE PANCREAS TECHNIQUE: The indications, alternatives, benefits, risks, and complications of the procedure were explained to the patient. Written informed consent was obtained and placed in the chart. Continuous EKG and hemodynamic monitoring was started by trained personnel. Real-time sonography was utilized to choose the site for percutaneous hepatic biopsy. The skin was prepped and draped in the usual sterile fashion. 1% lidocaine was infiltrated down to the hepatic capsule. A coaxial needle was then advanced into the liver under direct sonographic visualization. A biopsy apparatus was then utilized, and core biopsies were obtained. The needle was then withdrawn; a bandage and overlying weight were applied to the biopsy site. The attending physician was present, and personally performed the procedure. COMPARISON: [facility], US, ABDOMEN LTD, 02/01/2017, 9:05. [facility], CT, CT ABD W CON, 01/20/2017, 10:07. [facility], US , US GUIDED BX LIVER(PNL), 09/29/2013, 11:47. FINDINGS: Biopsy site(s): Anterior and posterior inferior right hepatic lobe lesions were biopsied. Needle: [facility] biopsy needle set. Number of passes: 7 total passes. Medications: 1% lidocaine for local anaesthesia. IV Versed and Fentanyl for conscious sedation for 15 minutes (see nursing record). Complications: None. IMPRESSION: Successful ultrasound-guided liver biopsy, with pathology results pending. Dictated by: Jeffery Elizabeth Sunshine Interpreted: Amber Pritchard MD on 02/09/2017 at 10: 57 Approved by: Amber Pritchard M.D. on 02/09/2017 at 17:00 Assessment & Plan # Weakness, acute, present on admission -Check serial hematocrit -Does have elevated white count which may be contributing to this but improved on morning of February 25 -Give IV fluids hydration and will progress diet as tolerated to soft # Leukocytosis, acute, present on admission -She has started on IV Zosyn the emergency room will go ahead and continue that for now -Wbc's improve the morning of February 25. 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 Drummond who was notified by ER physician regarding this patient -Also agreed with taking a look at repeat CT of abdomen and pelvis # Bright red blood per rectum, acute, present on admission -Monitor serial crits -Monitor stool -no further episodes since admitted yesterday # Hypertension, chronic, present on admission -Continue current medication regimen and monitor blood pressures #Tobacco dependence, present on admission -Place on nicotine patch #DVT prophylaxis -We will use SCDs and not put on subcutaneous anticoagulation given bright red blood per rectum #CODE STATUS -Full code VTE Prophylaxis: SCDs Resuscitation Status: CPR: Attempt Resuscitation Time spent 20 minutes Sierra Fam MD Feb 25, 2017 14:28
--- NOTE | 2017-02-25 17:50 | NUR ---
HR/GI HR intermittently irregular and fast. Placed on telemetry, per door technician: SR 70s at this time. 12 lead EKG pending. States cramping abd pain is unchanged. Abd is soft and flat, non-tender to palpation. Tolerates soft diet. Intermittent small amounts of [place] blood per rectum. Addendum: 02/25/17 at 1759 by ANGELLA DOMINGUEZ RN With irregular HR, pt asymptomatic. Denies chest pain, palpitations, SOB. Skin pink warm and dry.
[2017-02-26 00:50] VITALS: BP 148/74; PULSE 65; RESP 20; O2SAT 95
--- NOTE | 2017-02-26 03:13 | NUR ---
Rest Patient sleeping much of shift. Patient woke for pain medications mid shift and then went back to sleep. Patient stated she is happy to be catching up on sleep she missed out on throughout the day and previous night. Patient states her abdominal pain is less than it was, but seems to come and go in waves throughout the day. Rectal bleeding has also slowed down at this time. Tele sinus 70's. Vitals stable. Care continues.
[2017-02-26] MEDS: 0.9% Sodium Chloride 1,000 ML IV SCH (04:41)
[2017-02-26 05:30] VITALS: PULSE 78
[2017-02-26 05:55] LABS: BASOPHILS % (AUTO) 0.8 % (0-3); EOSINOPHILS % (AUTO) 7.8 % (0-5); MONOCYTES % (AUTO) 6.4 % (4-12); Mean Corpuscular Hemoglobin 33.7 pg (27.0-35.0); Mean Corpuscular Volume 102.7 fL (81-100); Platelet Count 217 bil/L (150-400)
[2017-02-26 06:30] VITALS: BP 155/75; PULSE 64; RESP 20; O2SAT 98
[2017-02-26] MEDS: Piperacillin-Tazo 3.375 Gm Inj 3.375 GM in Dextrose 5% Minibag Plus 50 ML IV SCH (07:46)
[2017-02-26 08:00] VITALS: PULSE 65
[2017-02-26 09:09] VITALS: BP 127/65; PULSE 67; RESP 18; O2SAT 94
--- NOTE | 2017-02-26 12:06 | PCM.DIMED ---
Discharge Instructions Date of Service Feb 26, 2017 Dates of Hospitalization Feb 24, 2017 at 15:30 Discharge Diagnosis Discharge Diagnosis Left-sided colitis responded to IV antibiotics Diet Discharge Diet: Heart Healthy Activity Discharge Activity: Other (progress as tolerated) Call your provider Call your provider for: Fever or Chills, Shortness of breath, Bleeding, Chest pain, Vomitting, Excessive diarrhea, Weakness (unilateral) Patient Instructions Follow-up Provider: [place] Follow-up with PCP in: 1 week (, sooner if problems) Sierra Fam MD Feb 26, 2017 12:06
[2017-02-26] MEDS ORDERED: AMOX500T2 PO (12:09)
[2017-02-26 12:49] VITALS: BP 133/78; PULSE 63; RESP 16; O2SAT 97
--- NOTE | 2017-02-26 14:37 | NUR ---
Discharge Orders for discharge were received. The patient was made aware of the plan for discharge and was agreeable to go. The patient was given information as well as physical handouts on her diagnosis and treatment, signs and symptoms to be aware of, follow up instructions, scripts for new medication and teaching on that medication. The patient signified understanding of this information, verified using the teach back method. The patient's asymptomatic IV was then removed intact and the patient's belongings were gathered as she dressed in her own clothing. The patient denied any belongings in the hospital safe or pharmacy. The patient then ambulated to the main entrance where she entered a private vehicle. At the time of discharge the patient was alert and oriented, with no complaint of chest pain, shortness of breath, nausea, weakness or other difficulty.
--- NOTE | 2017-02-26 14:46 | NUR ---
Social Work: Discharge/Multidisciplinary Rounds D: EMR reviewed. Pt is on day 2 of hospitalization. Pt discussed in multidisciplinary rounds and is medically stable for discharge. No discharge needs identified. No MD orders received. A: Pt who is independent at baseline and has the capacity for self-care. P: Pt to discharge home with family/friends to transport via POV. No SW needs identified, no MD orders received. CHIQUITA Stapleton
--- NOTE | 2017-02-26 15:53 | PCM.DC.MED ---
Discharge Summary Date of Service Feb 26, 2017 Dates of Hospitalization Date of Hospital Admission Feb 24, 2017 at 15:30 Date of Discharge: Feb 26, 2017 Providers: Admitting Physician: Sierra Fam MD Primary Care Physician: Mariana Mar Attending Physician: Sierra Fam MD Diagnosis at Time of Discharge Diagnosis at Time of Discharge Left-sided colitis responded to IV antibiotics Procedures XRay, CTs & MRIs PROCEDURE: CT ABDOMEN AND PELVIS WITH CONTRAST ([id number]) INDICATIONS: leukocytosis TECHNIQUE: After the administration of oral and intravenous contrast, 5 mm thick sections acquired from the diaphragms to the symphysis. 5 mm thick coronal and sagittal reformats were performed. For radiation dose reduction, the following was used : automated exposure control, adjustment of mA and/or kV according to patient size. COMPARISON: [facility], CT, CT ABD PELVIS W CON, 02/09/2017, 13:15. FINDINGS: Image quality: Excellent. ABDOMEN: Lung bases: Lung bases are clear. Heart size is normal. Solid organs: Liver and spleen are normal in size. Multiple heterogeneously enhancing and partially calcified hepatic lesions compatible with known neuroendocrine tumor metastatic disease stable compared to prior CT scan obtained 02/09/2017. Gallbladder is within normal limits. Biliary system is non- dilated. Pancreas enhances normally. Partially calcified mass in the head of the pancreas is stable compared to the prior examination. Pancreatic body and tail atrophy is stable compared to the prior examination. No adrenal nodules. Kidneys are normal in size and enhancement, without hydronephrosis. Peritoneum and bowel: Stomach and the small bowel are normal in caliber and wall thickness. Circumferential wall thickening involving the splenic flexure of the colon, the left colon and the sigmoid colon compatible with nonspecific colitis. Numerous diverticuli again noted in the sigmoid colon without evidence of diverticulitis. Small amount of free fluid noted in the pelvis. No free fluid or air. Nodes and vessels: No retroperitoneal or mesenteric adenopathy. Aorta and inferior vena cava are normal in caliber. Scattered atherosclerotic calcifications involving the abdominal and pelvic vasculature. Miscellaneous: No ventral hernias. PELVIS: Genitourinary: Bladder wall thickness is normal. Miscellaneous: No inguinal hernias or adenopathy. Bones: No suspicious bony lesions. No vertebral body compression fractures. Spine degenerative disc disease and facet arthropathy. IMPRESSION: 1. Circumferential wall thickening with adjacent inflammation involving the left colon and sigmoid colon compatible with nonspecific colitis. Differential diagnosis includes complex cyst/inflammatory processes, neoplastic process and ischemic etiologies. 2. Multiple partially calcified hepatic metastatic lesions stable compared to prior examination obtained sagittal and 17. 3. Partial calcified mass in the head of the pancreas stable compared to prior examination. 3. Small amount of low-density free fluid in the pelvis possibly related to colitis. Dictated by: Magy Frazier MD, PhD on 02/24/2017 at 17:02 Approved by: Magy Frazier MD, PhD on 02/24/2017 at 17:09 PROCEDURE: X-RAY CHEST, TWO VIEWS ([id number]) INDICATIONS: leukocytosis TECHNIQUE: 2 views of the chest were acquired. COMPARISON: [facility], , CHEST 1VW (PORTABLE), 06/27/2014, 18:15. FINDINGS: Surgical changes and devices: None. Lungs and pleura: No pleural effusions or pneumothorax. Lungs are clear. Mediastinum: Mediastinal contours are normal. Heart size is normal. Bones and chest wall: No suspicious bony abnormalities. Soft tissues appear unremarkable. IMPRESSION: No acute cardiopulmonary disease process. Dictated by: Magy Frazier MD, PhD on 02/24/2017 at 17:38 Approved by: Magy Frazier MD, PhD on 02/24/2017 at 17:38 PROCEDURE: US-GUIDED LIVER BIOPSY ([id number]) Ultrasound-guided liver biopsy with sedation analgesia for 15 minutes. INDICATIONS: METASTATIC NEOPLASM ENDOCRINE PANCREAS TECHNIQUE: The indications, alternatives, benefits, risks, and complications of the procedure were explained to the patient. Written informed consent was obtained and placed in the chart. Continuous EKG and hemodynamic monitoring was started by trained personnel. Real-time sonography was utilized to choose the site for percutaneous hepatic biopsy. The skin was prepped and draped in the usual sterile fashion. 1% lidocaine was infiltrated down to the hepatic capsule. A coaxial needle was then advanced into the liver under direct sonographic visualization. A biopsy apparatus was then utilized, and core biopsies were obtained. The needle was then withdrawn; a bandage and overlying weight were applied to the biopsy site. The attending physician was present, and personally performed the procedure. COMPARISON: [facility], US, ABDOMEN LTD, 02/01/2017, 9:05. [facility], CT, CT ABD W CON, 01/20/2017, 10:07. [facility], US , US GUIDED BX LIVER(PNL), 09/29/2013, 11:47. FINDINGS: Biopsy site(s): Anterior and posterior inferior right hepatic lobe lesions were biopsied. Needle: [employer] biopsy needle set. Number of passes: 7 total passes. Medications: 1% lidocaine for local anaesthesia. IV Versed and Fentanyl for conscious sedation for 15 minutes (see nursing record). Complications: None. IMPRESSION: Successful ultrasound-guided liver biopsy, with pathology results pending. Dictated by: Jeffery Elizabeth RRA Interpreted: Amber Pritchard MD on 02/09/2017 at 10: 57 Approved by: Amber Pritchard M.D. 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 He also noticed some blood independent of a bowel movement this morning per rectum does have a history of hemorrhoids. She denies any coffee ground emesis or hematemesis. He denies any chest pain or lightheadedness. Patient is on third line chemotherapy with a regimen of capecitabine and temozolomide with concurrent octreotide which started in September 2014. She did have some low-grade nausea with this regimen but otherwise has tolerated it well. Patient was found to have a stable hematocrit but was found to have elevated white count of 21,000 in the ER with 86% polys. Hospital Course # Weakness, acute, present on admission -Check serial hematocrit -Does have elevated white count which may be contributing to this but improved on morning of February 25 -Give IV fluids hydration and will progress diet as tolerated to soft # Leukocytosis, acute, present on admission -She has started on IV Zosyn the emergency room will go ahead and continue that for now -Wbc's improve the morning of February 25. 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 Drummond who was notified by ER physician regarding this patient -Also agreed with taking a look at repeat CT of abdomen and pelvis # Bright red blood per rectum, acute, present on admission -Monitor serial crits -Monitor stool -no further episodes since admitted # Hypertension, chronic, present on admission -Continue current medication regimen and monitor blood pressures #Tobacco dependence, present on admission -Place on nicotine patch #DVT prophylaxis -We will use SCDs and not put on subcutaneous anticoagulation given bright red blood per rectum #CODE STATUS -Full code Exam Vital Signs (Last) Date Time Temp Pulse Resp B/P Pulse Ox O2 Delivery O2 Flow Rate FiO2 02/26/17 12:49 36.8 63 16 133/78 97 Room Air Exam Constitutional: Middle-aged female in no acute distress Head: Normocephalic atraumatic Chest: Clear to auscultation Cor: Regular rate and rhythm S1-S2 without murmur Abdomen: Soft nontender bowel sounds present Extremities: No pedal edema Neuro: Alert and oriented 3, motor strength is intact bilaterally Laboratory Tests 72 Hours Test 02/24/17 13:40 02/24/17 14:45 02/24/17 15:40 02/24/17 16:31 White Blood Count 21.2th/mm3 (3.8-10.1) Red Blood Count 4.06mil/mm3 (3.90-5.20) Hemoglobin 14.1g/dL (12.0-15.6) Hematocrit 40.6% (35.0-46.0) Mean Corpuscular Volume 100.0fL (81-100) Mean Corpuscular Hemoglobin 34.7pg (27.0-35.0) Mean Corpuscular Hemoglobin Concent 34.7% (32.0-37.0) Red Cell Distribution Width 14.9% (12.3-15.4) Platelet Count 294bil/L (150-400) Neutrophils (%) (Auto) 86.4% (40-74) Lymphocytes (%) (Auto) 5.5% (14-46) Monocytes (%) (Auto) 5.1% (4-12) Eosinophils (%) (Auto) 2.3% (0-5) Basophils (%) (Auto) 0.4% (0-3) Prothrombin Time 10.7sec (8.1-12.5) Prothromb Time International Ratio 1.00ratio Sodium Level 135mEq/L (134-144) Potassium Level 4.1mEq/L (3.5-5.2) Chloride Level 97mEq/L (97-108) Carbon Dioxide Level 20mmol/L (18-29) Blood Urea Nitrogen 19mg/dL (8-27) Creatinine 1.02mg/dL (0.57-1.00) Estimat Glomerular Filtration Rate 78mL/min (>59) Glucose Level 126mg/dL (60-99) Lactic Acid Level 1.4mmol/L (0.4-2.0) Calcium Level 8.7mg/dL (8.5-10.1) Total Bilirubin 0.5mg/dL (0.0-1.2) Aspartate Amino Transf (AST/SGOT) 9U/L (0-50) Alanine Aminotransferase (ALT/SGPT) 7U/L (0-32) Alkaline Phosphatase 94U/L (25-165) Troponin T < 0.010ug/L (0.0-0.011) Total Protein 6.3g/dL (6.4-8.4) Albumin 3.4g/dL (3.4-5.0) Urine Color Yellow (YELLOW) Urine Appearance Hazy (CLEAR,HAZY) Urine pH 5.0 (5.0-8.0) Urine Specific [place] 1.030 (1.003-1.035) Urine Protein 100mg/dL (NEG,TRACE) Urine Glucose (UA) 100mg/dL (NEGATIVE) Urine Ketones Negativemg/dL (NEGATIVE) Urine Occult Blood Large (NEGATIVE) Urine Nitrite Negative (NEGATIVE) Urine Bilirubin Negative (NEGATIVE) Urine Urobilinogen 1.0mg/dL (NORMAL) Urine Leukocyte Esterase Negative (NEGATIVE) Urine RBC 3-10/hpf (0-2) Urine WBC 0-5/hpf (0-5) Urine Epithelial Cells Few/hpf (NONE-MOD) Urine Crystals None seen (NONE SEEN) Urine Bacteria Moderate/hpf (NONE-FEW) Urine Hyaline Casts None/lpf (NONE) Urine Granular Casts None seen (NONE SEEN) Urine Waxy Casts None seen (NONE SEEN) Urine Red Blood Cell Casts None seen (NONE SEEN) Urine White Blood Cell Casts None seen (NONE SEEN) Urine Mucus Present (None Seen) Urine Trichomonas None seen (NONE SEEN) Urine Yeast None (NONE SEEN) Urinalysis Comment None Urine Culture Reflexed Indicated Magnesium Level 2.0mg/dL (1.6-2.6) Procalcitonin 0.30ng/mL (0.00-0.08) Test 02/25/17 05:00 02/26/17 05:20 White Blood Count 16.6th/mm3 (3.8-10.1) 14.1th/mm3 (3.8-10.1) Red Blood Count 3.60mil/mm3 (3.90-5.20) 3.32mil/mm3 (3.90-5.20) Hemoglobin 12.2g/dL (12.0-15.6) 11.2g/dL (12.0-15.6) Hematocrit 36.4% (35.0-46.0) 34.1% (35.0-46.0) Mean Corpuscular Volume 101.1fL (81-100) 102.7fL (81-100) Mean Corpuscular Hemoglobin 33.9pg (27.0-35.0) 33.7pg (27.0-35.0) Mean Corpuscular Hemoglobin Concent 33.5% (32.0-37.0) 32.8% (32.0-37.0) Red Cell Distribution Width 14.7% (12.3-15.4) 14.5% (12.3-15.4) Platelet Count 220bil/L (150-400) 217bil/L (150-400) Neutrophils (%) (Auto) 76.9% (40-74) 73.0% (40-74) Lymphocytes (%) (Auto) 8.4% (14-46) 11.9% (14-46) Monocytes (%) (Auto) 5.7% (4-12) 6.4% (4-12) Eosinophils (%) (Auto) 8.3% (0-5) 7.8% (0-5) Basophils (%) (Auto) 0.6% (0-3) 0.8% (0-3) Sodium Level 140mEq/L (134-144) 139mEq/L (134-144) Potassium Level 4.2mEq/L (3.5-5.2) 3.9mEq/L (3.5-5.2) Chloride Level 107mEq/L (97-108) 107mEq/L (97-108) Carbon Dioxide Level 21mmol/L (18-29) 21mmol/L (18-29) Blood Urea Nitrogen 9mg/dL (8-27) 5mg/dL (8-27) Creatinine 0.61mg/dL (0.57-1.00) 0.54mg/dL (0.57-1.00) Estimat Glomerular Filtration Rate 141mL/min (>59) 163mL/min (>59) Glucose Level 131mg/dL (60-99) 134mg/dL (60-99) Calcium Level 8.2mg/dL (8.5-10.1) 8.1mg/dL (8.5-10.1) Total Bilirubin 0.5mg/dL (0.0-1.2) 0.3mg/dL (0.0-1.2) Aspartate Amino Transf (AST/SGOT) 9U/L (0-50) 8U/L (0-50) Alanine Aminotransferase (ALT/SGPT) 5U/L (0-32) 5U/L (0-32) Alkaline Phosphatase 83U/L (25-165) 88U/L (25-165) Total Protein 5.2g/dL (6.4-8.4) 4.9g/dL (6.4-8.4) Albumin 3.2g/dL (3.4-5.0) 3.0g/dL (3.4-5.0) Procalcitonin 0.16ng/mL (0.00-0.08) Test 02/24/17 13:40 02/24/17 14:45 02/24/17 15:40 02/24/17 16:31 Prothrombin Time 10.7sec (8.1-12.5) Prothromb Time International Ratio 1.00ratio Lactic Acid Level 1.4mmol/L (0.4-2.0) Troponin T < 0.010ug/L (0.0-0.011) Urine Color Yellow (YELLOW) Urine Appearance Hazy (CLEAR,HAZY) Urine pH 5.0 (5.0-8.0) Urine Specific [place] 1.030 (1.003-1.035) Urine Protein 100mg/dL (NEG,TRACE) Urine Glucose (UA) 100mg/dL (NEGATIVE) Urine Ketones Negativemg/dL (NEGATIVE) Urine Occult Blood Large (NEGATIVE) Urine Nitrite Negative (NEGATIVE) Urine Bilirubin Negative (NEGATIVE) Urine Urobilinogen 1.0mg/dL (NORMAL) Urine Leukocyte Esterase Negative (NEGATIVE) Urine RBC 3-10/hpf (0-2) Urine WBC 0-5/hpf (0-5) Urine Epithelial Cells Few/hpf (NONE-MOD) Urine Crystals None seen (NONE SEEN) Urine Bacteria Moderate/hpf (NONE-FEW) Urine Hyaline Casts None/lpf (NONE) Urine Granular Casts None seen (NONE SEEN) Urine Waxy Casts None seen (NONE SEEN) Urine Red Blood Cell Casts None seen (NONE SEEN) Urine White Blood Cell Casts None seen (NONE SEEN) Urine Mucus Present (None Seen) Urine Trichomonas None seen (NONE SEEN) Urine Yeast None (NONE SEEN) Urinalysis Comment None Urine Culture Reflexed Indicated Magnesium Level 2.0mg/dL (1.6-2.6) Test 02/25/17 05:00 02/26/17 05:20 Procalcitonin 0.16ng/mL (0.00-0.08) White Blood Count 14.1th/mm3 (3.8-10.1) Red Blood Count 3.32mil/mm3 (3.90-5.20) Hemoglobin 11.2g/dL (12.0-15.6) Hematocrit 34.1% (35.0-46.0) Mean Corpuscular Volume 102.7fL (81-100) Mean Corpuscular Hemoglobin 33.7pg (27.0-35.0) Mean Corpuscular Hemoglobin Concent 32.8% (32.0-37.0) Red Cell Distribution Width 14.5% (12.3-15.4) Platelet Count 217bil/L (150-400) Neutrophils (%) (Auto) 73.0% (40-74) Lymphocytes (%) (Auto) 11.9% (14-46) Monocytes (%) (Auto) 6.4% (4-12) Eosinophils (%) (Auto) 7.8% (0-5) Basophils (%) (Auto) 0.8% (0-3) Sodium Level 139mEq/L (134-144) Potassium Level 3.9mEq/L (3.5-5.2) Chloride Level 107mEq/L (97-108) Carbon Dioxide Level 21mmol/L (18-29) Blood Urea Nitrogen 5mg/dL (8-27) Creatinine 0.54mg/dL (0.57-1.00) Estimat Glomerular Filtration Rate 163mL/min (>59) Glucose Level 134mg/dL (60-99) Calcium Level 8.1mg/dL (8.5-10.1) Total Bilirubin 0.3mg/dL (0.0-1.2) Aspartate Amino Transf (AST/SGOT) 8U/L (0-50) Alanine Aminotransferase (ALT/SGPT) 5U/L (0-32) Alkaline Phosphatase 88U/L (25-165) Total Protein 4.9g/dL (6.4-8.4) Albumin 3.0g/dL (3.4-5.0) Discharge Medications Discharge Medications Amlodipine (Amlodipine) 10 Mg Tablet 10 MG PO DAILY (Reported) Amoxicillin (Amoxicillin) 500 Mg Tablet 500 MG PO TID Prescribed by: SIERRA FAM MD Atorvastatin (Lipitor) 40 Mg Tablet 40 MG PO DAILY (Reported) Capecitabine (Capecitabine) 500 Mg Tablet 1,000 MG PO BID (Reported) X14 DAYS per 28 day cycle Clopidogrel (Clopidogrel) 75 Mg Tablet 75 MG PO DAILY (Reported) Enalapril Maleate (Enalapril Maleate) 2.5 Mg Tablet 2.5 MG PO DAILY (Reported) Metformin (Metformin) 500 Mg Tablet 500 MG PO DAILY (Reported) Temozolomide (Temozolomide) 140 Mg Capsule 140 MG PO BID (Reported) takes on DAYS 10-14 As needed Doxylamine Succinate (Nighttime Sleep-Aid) 25 Mg Tablet 50 MG PO HS PRN PRN Insomnia (Reported) Ondansetron ODT (Zofran ODT) 8 Mg Tab.rapdis 8 MG PO BID PRN PRN For Nausea ( Reported) oxyCODONE (oxyCODONE) 15 Mg Tablet 15-30 MG PO Q8HRS PRN PRN For Pain (Reported ) Followup Plan Disposition: Home Discharge Diet: Heart Healthy Discharge Activity: Other (progress as tolerated) Follow-up Provider: Mariana Mar Follow-up with PCP in: 1 week (, sooner if problems) Time spent 45 minutes copies to: Mariana Mar Cheryl A MD Feb 26, 2017 15:53
== END 2017-02-26 14:25 | disposition home or self-care (01) | DRG 392 ==
LOC: SED 12:32 → OSC 15:30
PROVIDERS: ADMIT Specialist; ATTEND Specialist
DX: A09 Infectious gastroenteritis and colitis, unspecified (principal); K62.5 Hemorrhage of anus and rectum; C25.4 Malignant neoplasm of endocrine pancreas; C78.7 Secondary malignant neoplasm of liver and intrahepatic bile duct; Z86.73 Personal history of transient ischemic attack (TIA), and cerebral infarction without residual deficits; Z79.84 Long term (current) use of oral hypoglycemic drugs; F17.210 Nicotine dependence, cigarettes, uncomplicated; D72.829 Elevated white blood cell count, unspecified; R53.1 Weakness; I10 Essential (primary) hypertension